=== PATIENT | female | born 1940 | race Caucasian/White ===

== ENCOUNTER 2016-11-25 15:00 | Emergency (ER) | payer OTHER ==
[2016-11-25 15:58] LABS: BASOPHIL# 0.1 X 10^3uL (0.0-0.1); BASOPHILS 0.9 % (0.0-2.0); EOSINOPHILS 3.9 % (0.0-6.0); EOSINOPHILS# 0.3 X 10^3uL (0.0-0.4); HEMOGLOBIN 14.2 g/dL (12.0-16.0); LYMPHOCYTES 35.7 % (20.0-40.0); LYMPHOCYTES# 2.7 X 10^3uL (0.8-3.8); MEAN CELL VOLUME 102.3 fL (80.0-100.0); MEAN CORPUS. HGB CONCENTRATION 34.6 g/dL (32.0-36.0); MEAN CORPUSCULAR HEMOGLOBIN 35.3 pg (29.0-35.0); MEAN PLATELET VOLUME 9.5 fL (7.4-10.4); MONOCYTES 6.1 % (2.0-10.0); MONOCYTES# 0.5 X 10^3uL (0.2-1.0); NEUTROPHILS 53.4 % (54.0-75.0); NEUTROPHILS# 4.1 X 10^3uL (2.6-6.7); PLATELET COUNT 200 X 10^3uL (130-440); RED BLOOD COUNT 4.01 X 10^6uL (4.20-6.10); RED CELL DISTRIBUTION WIDTH 12.9 % (11.5-14.5); WHITE BLOOD COUNT 7.7 X 10^3uL (3.9-10.7)
[2016-11-25 16:08] LABS: A/G RATIO 1.4; ALBUMIN 4.2 g/dL (3.5-5.0); ALKALINE PHOSPHATASE 74 U/L (38-126); ALT 70 U/L (9-52); AST 53 U/L (14-36); BILIRUBIN, TOTAL 0.4 mg/dL (0.2-1.3); BLOOD UREA NITROGEN 22 mg/dL (7-17); CALCIUM 9.1 mg/dL (8.4-10.2); CHLORIDE 106 mmol/L (98-107); CREATININE 0.9 mg/dL (0.5-1.0); EST GLOMERULAR FILTRATION RATE > 60 mL/min; GLUCOSE 82 mg/dL (70-100); POTASSIUM 4.2 mmol/L (3.5-5.1); SODIUM 140 mmol/L (137-145); TOTAL PROTEIN 7.3 g/dL (6.3-8.2)
[2016-11-25 16:11] LABS: C-REACTIVE PROTEIN < 5.0 mg/L (<10.0)
[2016-11-25 16:27] LABS: ERYTHROCYTE SEDIMENTATION RATE 8 MM/HR (0-20)
--- NOTE | 2016-11-25 17:13 | MRI REPORT ---
HISTORY: Low back pain, difficulty walking, prior surgery COMPARISON: 01/08/2015 TECHNIQUE: Multiplanar multi sequential imaging of the lumbar spine obtained without IV gadolinium. FINDINGS: [Since the prior study, there has been posterior fusion from T11 through L5. Posterior subluxation of T12 on L1 is slightly improved. No other subluxation. No compression deformity. Marrow signal is nor mal given the postoperative changes. The distal thoracic cord and conus are grossly normal. The conus is somewhat limitedly evaluated due to artifact, but terminates at the T12 level. Axial images demonstrate the following: T9-T10 shows a small broad-based disc without significant effect upon the cord. T11-12 shows mild canal stenosis. This is similar, and due to small bony osteophytes. T12-L1 shows mild canal stenosis. Foraminal regions are scattered by artifact. L1-2: No significant stenosis. Visualization is limited by artifact. L2-L3: Mild canal stenosis mostly due to bony hypertrophy is similar. Foraminal regions are limitedly evaluated by artifact. L3-L4: Mild canal stenosis is noted, significantly improved from the prior study. Foraminal regions a re limitedly evaluated by artifact. L4-L5: Moderate canal stenosis is slightly improved. There remains a small broad-based disc. Foramina l regions are less well evaluated due to artifact. L5-S1: No disc herniation, foraminal narrowing, or spinal stenosis. Paraspinal tissues are unremarkable. IMPRESSION: Postoperative changes with posterior fusion from T11 through L5. The the hardware does limit evaluati on of the foraminal regions. Significant improvement in previously noted canal stenosis at L3-4. Mild canal stenosis at L2-3 and moderate canal stenosis at L4-5. The stenosis at L4-5 is slightly imp roved. Final Electronic Signature: This report was electronically signed by Tam Bustamante MD on 11/25/2016 5: 10 PM. alis /
--- NOTE | 2016-11-25 19:08 | ER PHYSICIAN DOCUMENTATION ---
Physician Documentation [facility] Name:Janice Powers Age:76 yrs Sex:Female :1940 Arrival Date:11/25/2016 Time:15:00 Bed1 Private MD:Michael Sher ED, Tom Disposition: 11/25 19:20 Chart complete. tl1 Disposition: 11/25/16 18:12 Discharged to Home/Self Care. Impression: Acute Back Pain. - Condition is Good. - Discharge Instructions: BACK PAIN (Acute or Chronic). - Prescriptions for Percocet 7.5- 325 mg Oral Tablet - take 1 tablet by ORAL route every 6 hours As needed; 15 tablet. Zofran 4 mg Oral Tablet - take 1-2 tablet by ORAL route every 4-6 hours As needed; 10 tablet. - Medical Reconciliation form form. - Follow up: Michael Sher MD; When: 4- 6 days; Reason: Recheck today's complaints, Continuance of care. - Problem is new. - Symptoms have improved. HPI: 15:30 This 76 yrs old Female presents to ER via Private Vehicle with complaints of tl1 Low Back Pain. 15:30 The patient presents with pain that is acute. The symptoms are located in the low back. tl1 The pain does not radiate. The problem was sustained from a chronic condition, the patient has had a previous back surgery. The patient has experienced a previous episode, last year. 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 Historical: - Allergies: Codeine; - Home Meds: 1. Synthroid Oral 2. Prilosec Oral 3. meloxicam oral 4. Baclofen Oral 5. ProAir HFA inhalation 6. Flovent Inhl 7. Estradiol Oral 8. [place] Oral 9. Colace oral 10. trazodone 50 mg oral tab 1 tab at HS 11. Advair Diskus 250-50 mcg/dose inhalation dsdv 2 times per day 12. lisinopril-hydrochlorothiazide 20-12.5 mg oral tab once daily 13. lovastatin 40 mg oral tab at bedtime 14. Restoril 15 mg oral cap at bedtime as needed 15. tramadol 50 mg oral tab 1 tab as needed for Pain 16. doxycycline hyclate 100 mg oral cap 1 cap once daily 17. meloxicam 7.5 mg oral tab once daily - PMHx: ASTHMA; THYROID PROBLEM; chronic back pain; HTN; hyperlipidemia; COPD; HYPOTHYROIDISM; constipation; GERD; insomnia; - Tetanus: < 10 years. - Ebola Screening: : Patient negative for fever greater than or equal to 101.5 degrees Fahrenheit, and additional compatible Ebola Virus Disease symptoms. Patient denies exposure to infectious person. Patient denies travel to an Ebola-affected area in the 21 days before illness onset. No symptoms or risks identified at this time. . - Immunization history: Unable to Obtain. - Social history: Smoking status: . ROS: 17:30 Back: Positive for pain with movement. tl1 17:30 All other systems are negative. Exam: 17:30 Back: pain, that is moderate, ROM is decreased, with all movement, vertebral tl1 tenderness, is appreciated at T9, T10, T11, T12 and L1. Vital Signs: 15:24 BP 143 / 93 (auto/); Pulse 88; Resp 20; Temp 98.4; Pulse Ox 92% on R/A; Weight 71.21 rs kg; Height 5 ft. 2 in. (157.48 cm); Pain 7/10; 15:24 Body Mass Index 28.72 (71.21 kg, 157.48 cm) rs MDM: 15:16 Patient medically screened. tl1 18:30 Data reviewed: and as a result, I will discharge patient. Counseling: I had a detailed tl1 discussion with the patient and/or guardian regarding: the historical points, exam findings, and any diagnostic results supporting the discharge/admit diagnosis, lab results, radiology results, the need for outpatient follow up, to return to the emergency department if symptoms worsen or persist or if there are any questions or concerns that arise at home. Medication response: The patient's symptoms have improved. Response to treatment: the patient's symptoms have mildly improved after treatment, and as a result, I will discharge patient. ED course: Labs and MRI are not consistent, at this time, with infection. She can f/u with her regular neurosurgeon, Dr Escobar as scheduled on 12/15. I did give her a prescription for 15 percocet 7.5 mg/325 tabs.. 11/25 16:12 Order name: COMPREHENSIVE METABOLIC PANEL; Complete Time: 16:33 EDMS 11/25 16:12 Order name: C-REACTIVE PROTEIN; Complete Time: 16:33 EDMS 11/25 16:13 Order name: CBC AUTO DIF, MDIF/RMOR IF IND; Complete Time: 16:33 EDMS 11/25 16:28 Order name: ERYTHROCYTE SEDIMENTATION RATE; Complete Time: 16:33 EDMS 11/25 16:19 Order name: LUMBAR SPINE W/O [id number] EDMS 11/25 17:14 Order name: LUMBAR SPINE W/O [id number]; Complete Time: 18:08 EDMS Dispensed Medications: No medications were administered Signatures: Renate Lin RN RN Derrick Goel MD MD tl1
--- NOTE | 2016-11-25 19:08 | ER NURSING DOCUMENTATION ---
Nurse's Notes [facility] Name:Janice Powers Age:76 yrs Sex:Female :1940 Arrival Date:11/25/2016 Time:15:00 Bed1 Private MD:Michael Sher Diagnosis:Acute Back Pain Presentation: 11/25 15:12 Presenting complaint: Patient states: Here for an MRI of her back. Does not want rs anything else done. Pt of Dr Pierce. Dr Hancock informed and spoke with Dr Del Real. Transition of care: Home. 15:12 Acuity: PRESLEY 3 rs 15:12 Method Of Arrival: Private Vehicle rs 15:39 Presenting complaint: Patient states: Agrees to being seen through the ER and MRI is rs available. She states she had back surg one year ago which became infected. She has had back pain since that time but is concerned today that she may have an infection in the same area. She does not feel sick, no fever or chills, but feels an area of swelling and it is tender. Triage Assessment: 15:15 General: Appears uncomfortable, well developed, well nourished, well groomed, Behavior rs is cooperative, pleasant. Pain: Complains of pain in mid spine Pain does not radiate. Pain currently is 7 out of 10 on a pain scale. Alleviated by nothing. Neuro: No deficits noted. Level of Consciousness is awake, alert, Oriented to person, place, time, event, Roll Grinder are equal bilaterally Moves all extremities. Gait is steady, Speech is normal. Cardiovascular: No deficits noted. Capillary refill < 3 seconds Pulses are 3+ in left radial artery. Respiratory: No deficits noted. Respiratory effort is even, unlabored, Respiratory pattern is regular, symmetrical. GI: No deficits noted. : No deficits noted. Derm: No deficits noted. Skin is pink, warm & dry. Musculoskeletal: Circulation, motion, and sensation intact Capillary refill < 3 seconds Range of motion limited in thoracic spine. Historical: - Allergies: Codeine; - Home Meds: 1. Synthroid Oral 2. Prilosec Oral 3. meloxicam oral 4. Baclofen Oral 5. ProAir HFA inhalation 6. Flovent Inhl 7. Estradiol Oral 8. [place] Oral 9. Colace oral 10. trazodone 50 mg oral tab 1 tab at HS 11. Advair Diskus 250-50 mcg/dose inhalation dsdv 2 times per day 12. lisinopril-hydrochlorothiazide 20-12.5 mg oral tab once daily 13. lovastatin 40 mg oral tab at bedtime 14. Restoril 15 mg oral cap at bedtime as needed 15. tramadol 50 mg oral tab 1 tab as needed for Pain 16. doxycycline hyclate 100 mg oral cap 1 cap once daily 17. meloxicam 7.5 mg oral tab once daily - PMHx: ASTHMA; THYROID PROBLEM; chronic back pain; HTN; hyperlipidemia; COPD; HYPOTHYROIDISM; constipation; GERD; insomnia; - Tetanus: < 10 years. - Ebola Screening: : Patient negative for fever greater than or equal to 101.5 degrees Fahrenheit, and additional compatible Ebola Virus Disease symptoms. Patient denies exposure to infectious person. Patient denies travel to an Ebola-affected area in the 21 days before illness onset. No symptoms or risks identified at this time. . - Immunization history: Unable to Obtain. - Social history: Smoking status: . Screenin:30 Infectious Disease Risk None. Abuse screen: Denies threats or abuse. Nutritional rs screening: No deficits noted. Assessment: 18:39 See Triage Assessment done by same RN. rs Vital Signs: 15:24 BP 143 / 93 (auto/); Pulse 88; Resp 20; Temp 98.4; Pulse Ox 92% on R/A; Weight 71.21 rs kg; Height 5 ft. 2 in. (157.48 cm); Pain 7/10; 15:24 Body Mass Index 28.72 (71.21 kg, 157.48 cm) rs ED Course: 15:02 Patient arrived in ED. lm3 15:02 Michael Sher MD is Private Physician. lm3 15:12 Renate Lin, RN is Primary Nurse. rs 15:16 Derrick Hancock MD is Attending Physician. tl1 15:20 Notified ED Physician of patient's arrival and chief complaint. Dr. Hancock notified. Arm rs band placed on Bed in low position Call Light in Reach Gowned HOB Elevated Side rails up x1. 15:30 Door closed. Noise minimized. Lights dimmed. Verbal reassurance given. rs 15:34 Triage completed. rs 15:47 Patient moved to MRI. pm1 16:19 LUMBAR SPINE W/O [id number] In Process Unspecified. EDMS 17:06 Patient moved back from MRI. pm1 18:10 Michael Sher MD is Referral Physician. tl1 Administered Medications: No medications were administered Outcome: 18:12 Discharge ordered by . tl1 18:20 Discharged to home ambulatory. rs 18:20 Condition: stable 18:20 Discharge instructions given to patient, Instructed on Demonstrated understanding of instructions, Prescriptions given X 2. 19:07 Patient left the ED. rs Signatures: Dispatcher [employer] EDLA Renate Lin, RN RN rs Marco Hannon pm1 Derrick Hancock MD MD tl1 Lakeshia Don lm3
== END 2016-11-25 19:08 | disposition home or self-care (01) ==
LOC: ER 15:00
DX: M54.5 Low back pain (principal); M54.6 Pain in thoracic spine; Z98.890 Other specified postprocedural states; Z79.2 Long term (current) use of antibiotics; I10 Essential (primary) hypertension; J44.9 Chronic obstructive pulmonary disease, unspecified; Z79.899 Other long term (current) drug therapy
CPT/HCPCS: 36415; 72148; 80053; 85025; 85651; 86140; 99284